=== PATIENT | male | born 2000 | race Two or more races ===

== ENCOUNTER 2019-05-23 00:11 | Emergency (ER) | payer OTHER ==
[~2019-05-23] VITALS: Ht 182.9 cm; Wt 79.4 kg
[2019-05-23] MEDS ORDERED: KETO10TA2 PO (01:20)
== END 2019-05-23 01:55 | disposition home or self-care (01) ==
LOC: ER 00:11
DX: S90.112A Contusion of left great toe without damage to nail, initial encounter (principal); W22.8XXA Striking against or struck by other objects, initial encounter; Y93.89 Activity, other specified; Y92.89 Other specified places as the place of occurrence of the external cause; Y99.8 Other external cause status